=== PATIENT | male | born 1985 | race Caucasian/White ===

== ENCOUNTER 2017-04-26 10:59 | Inpatient (IN) | payer MEDICARE, MEDICAID ==
[~2017-04-26] VITALS: Ht 180.3 cm; Wt 77.3 kg
[2017-04-26] MEDS ORDERED: ZOLPIDEM TARTRATE 10 MG TABLET PO PRN (16:30)
[2017-04-26] MEDS ORDERED: HALOPERIDOL 5 MG TABLET PO PRN (16:30)
[2017-04-26 17:52] VITALS: BP 107/65
[2017-04-26] MEDS ORDERED: INFLUENZA VIRUS VACCINE QVS 2017-18 (3YR+)/PF 60 MCG/0.5 ML SYRINGE IM ONE (19:15)
[2017-04-26] MEDS: LORazepam 2 MG TABLET PO PRN (19:59)
[2017-04-27] MEDS: LORazepam 2 MG TABLET PO PRN (07:51)
[2017-04-27 08:33] VITALS: BP 109/60
[2017-04-27 16:29] VITALS: BP 108/62
[2017-04-27] MEDS: LITHIUM CARBONATE 300 MG CAPSULE PO SCH (17:12)
[2017-04-28] MEDS: LITHIUM CARBONATE 300 MG CAPSULE PO SCH ×2 (08:19→16:25)
[2017-04-28] MEDS: LORazepam 2 MG TABLET PO PRN (09:07)
[2017-04-28 09:16] VITALS: BP 121/74
[2017-04-28 16:28] VITALS: BP 119/77
[2017-04-29 08:24] VITALS: BP 109/66
[2017-04-29] MEDS: LITHIUM CARBONATE 300 MG CAPSULE PO SCH (08:33)
[2017-04-29] MEDS ORDERED: LITH300C3 PO (10:54)
== END 2017-04-29 14:20 | disposition home or self-care (01) | DRG 885 ==
LOC: B2X 16:00
PROVIDERS: ADMIT Psychiatry & Neurology Psychiatry; ATTEND Psychiatry & Neurology Child & Adolescent Psychiatry
DX: F20.0 Paranoid schizophrenia (principal); F10.10 Alcohol abuse, uncomplicated; R00.0 Tachycardia, unspecified; F12.10 Cannabis abuse, uncomplicated; Z91.83 Wandering in diseases classified elsewhere; Z79.899 Other long term (current) drug therapy; Z71.41 Alcohol abuse counseling and surveillance of alcoholic; Z71.51 Drug abuse counseling and surveillance of drug abuser; Z28.21 Immunization not carried out because of patient refusal
CPT/HCPCS: 87081

== ENCOUNTER 2017-05-01 11:15 | Inpatient (IN) | payer MEDICARE, MEDICAID ==
[~2017-05-01] VITALS: Ht 180.3 cm; Wt 73.7 kg
[~2017-05-01 11:15] MED LIST: LITH300C3 PO
[2017-05-01 15:53] VITALS: BP 112/67
[2017-05-01] MEDS ORDERED: ZOLPIDEM TARTRATE 10 MG TABLET PO PRN (16:00)
[2017-05-01] MEDS ORDERED: INFLUENZA VIRUS VACCINE QVS 2017-18 (3YR+)/PF 60 MCG/0.5 ML SYRINGE IM ONE (16:15)
[2017-05-01 16:42] VITALS: BP 113/50
[2017-05-01] MEDS: HALOPERIDOL 5 MG TABLET PO PRN (17:25)
[2017-05-01] MEDS: LORazepam 2 MG TABLET PO PRN (17:50)
[2017-05-02] MEDS: LITHIUM CARBONATE 300 MG CAPSULE PO SCH ×2 (09:00→16:11)
[2017-05-02 09:53] VITALS: BP 113/60
[2017-05-02 16:22] VITALS: BP 101/60
[2017-05-02] MEDS: HALOPERIDOL 5 MG TABLET PO PRN (16:43)
[2017-05-02 16:52] VITALS: BP 119/63
[2017-05-02] MEDS: LORazepam 2 MG TABLET PO PRN (19:17)
[2017-05-02] MEDS: OLANZapine 5 MG TABLET PO SCH (20:14)
[2017-05-03 07:03] VITALS: BP 123/72
[2017-05-03] MEDS: OLANZapine 5 MG TABLET PO SCH (09:00)
[2017-05-03] MEDS: LITHIUM CARBONATE 300 MG CAPSULE PO SCH ×2 (09:05→16:14)
[2017-05-03 13:13] VITALS: BP 114/68
[2017-05-03 16:06] VITALS: BP 105/60
[2017-05-03] MEDS: LORazepam 2 MG TABLET PO PRN ×2 (16:14→20:24)
[2017-05-03 16:31] VITALS: BP 109/72
[2017-05-03] MEDS: OLANZapine 10 MG TABLET PO SCH (20:06)
[2017-05-04 09:00] VITALS: BP 119/74
[2017-05-04] MEDS: LITHIUM CARBONATE 300 MG CAPSULE PO SCH ×2 (09:08→16:35)
[2017-05-04 16:26] VITALS: BP 107/60
[2017-05-04] MEDS: LORazepam 2 MG TABLET PO PRN (18:52)
[2017-05-04] MEDS: OLANZapine 10 MG TABLET PO SCH (20:15)
[2017-05-05 06:35] VITALS: BP 104/60
[2017-05-05 08:43] VITALS: BP 119/75
[2017-05-05] MEDS: LITHIUM CARBONATE 300 MG CAPSULE PO SCH (10:08)
[2017-05-05] MEDS ORDERED: OLAN10TA3 PO (10:44)
== END 2017-05-05 13:10 | disposition home or self-care (01) | DRG 885 ==
LOC: B2X 15:59
PROVIDERS: ADMIT Psychiatry & Neurology Child & Adolescent Psychiatry; ATTEND Psychiatry & Neurology Child & Adolescent Psychiatry
DX: F25.0 Schizoaffective disorder, bipolar type (principal); F29 Unspecified psychosis not due to a substance or known physiological condition; F10.10 Alcohol abuse, uncomplicated; F31.9 Bipolar disorder, unspecified; F19.10 Other psychoactive substance abuse, uncomplicated; Z71.41 Alcohol abuse counseling and surveillance of alcoholic; Z71.51 Drug abuse counseling and surveillance of drug abuser; Z59.0 Homelessness
CPT/HCPCS: 87081